=== PATIENT | male | born 1960 | race Caucasian/White ===

== ENCOUNTER 2021-04-22 14:20 | Emergency (ER) | payer BC ==
[2021-04-22] MEDS ORDERED: Boostrix 0.5 ML (Tdap) VIAL ONE (14:30)
== END 2021-04-22 15:06 | disposition home or self-care (01) ==
LOC: BURERS 14:20
DX: S90.852A Superficial foreign body, left foot, initial encounter (principal); I10 Essential (primary) hypertension; W45.8XXA Other foreign body or object entering through skin, initial encounter
CPT/HCPCS: 28190; 90471; 90715